=== PATIENT | female | born 2000 | race Caucasian/White ===

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

== ENCOUNTER 2024-05-18 09:06 | Emergency (ER) | payer OTHER ==
[~2024-05-18] VITALS: Ht 162.6 cm; Wt 145.5 kg
[2024-05-18 09:12] VITALS: TEMP 97.7
[2024-05-18 10:31] LABS: HEMATOCRIT 42.1 % (37.0-47.0); HEMOGLOBIN 13.4 g/dl (12.5-16.0); MEAN CELL VOLUME 85 fl (80.0-100.0); MEAN CORPUSCULAR HEMOGLOBIN 27 pg (27-31); MEAN CORPUSCULAR HGB CONC 32 g/dl (33.0-37.0); MEAN PLATELET VOLUME 10.5 fl (7.4-10.4); PLATELET COUNT 253 K/mm3 (130-400); RED BLOOD COUNT 4.94 M/mm3 (4.10-5.30); REDCELL DISTRIBUTION WIDTH-CV 12.7 % (11.5-14.5)
[2024-05-18 10:50] LABS: ALBUMIN 3.9 g/dL (3.5-5.0); CALCIUM 9.3 mg/dL (8.4-10.2); CREATININE, serum 0.72 mg/dL (0.57-1.11); POTASSIUM 3.9 mEq/L (3.5-4.5); TOTAL PROTEIN 6.9 g/dl (6.2-8.1)
[2024-05-18 11:16] LABS: BAND 2 % (0-10); LYMPHOCYTE 6 % (20.0-51.0); NEUTROPHILS 84 % (42.0-75.2)
[2024-05-18 11:17] LABS: PLATELET ESTIMATE NORMAL (NORMAL)
[2024-05-18 11:20] LABS: HYPOCHROMIA 1+
[2024-05-18] MEDS ORDERED: Iohexol 300 - 100 ML VIAL IV ONE (11:22)
[2024-05-18] MEDS ORDERED: NS 100 ML IV SCH (11:23)
[2024-05-18] MEDS ORDERED: Albuterol 0.083% Neb Soln 2.5 MG/3 ML UD IH ONE (12:00)
[2024-05-18] MEDS ORDERED: cefTRIAXone 1 G in Water For Injection,Sterile 10 ML IV ONE (12:00)
[2024-05-18] MEDS ORDERED: OMNICEF 300MG300 MG PO (12:26)
[2024-05-18] MEDS ORDERED: PROAIR HFA0.09 MG/AC IH (12:29)
[2024-05-18 12:47] VITALS: BP 117/77; PULSE 111
== END 2024-05-18 12:53 | disposition home or self-care (01) ==
LOC: COL.ER 09:06
PROVIDERS: Physician Assistant
DX: J98.4 Other disorders of lung (principal)
CPT/HCPCS: J0696; Q9967